=== PATIENT | female | born 1985 | race Caucasian/White ===

== ENCOUNTER 2023-08-03 09:45 | Emergency (ER) | payer OTHER ==
[~2023-08-03] VITALS: Ht 162.6 cm; Wt 68.0 kg
[2023-08-03 10:54] VITALS: BP 113/76
== END 2023-08-03 11:55 | disposition home or self-care (01) ==
LOC: ER 09:45
DX: S60.031A Contusion of right middle finger without damage to nail, initial encounter (principal); S60.041A Contusion of right ring finger without damage to nail, initial encounter; S60.051A Contusion of right little finger without damage to nail, initial encounter; W23.0XXA Caught, crushed, jammed, or pinched between moving objects, initial encounter
CPT/HCPCS: 73130; 99283-25; A9270